=== PATIENT | female | born 1995 | race Caucasian/White ===

== ENCOUNTER 2018-01-19 06:58 | Inpatient (IN) | payer OTHER, MEDICAID ==
[~2018-01-19] VITALS: Ht 160 cm; Wt 91.4 kg
[2018-01-20] VITALS (60 sets, daily range): BP systolic 100–141; BP diastolic 51–83; PULSE 64–136; TEMP 97.5–98.5
[2018-01-20] MEDS ORDERED: RT ALBUTER2.5 MG/0.5 IH (07:28)
[2018-01-20] MEDS ORDERED: PRENATAL (07:29)
[2018-01-20] MEDS ORDERED: CLARISPRAY9.9 ML NS (07:30)
[2018-01-20] MEDS ORDERED: PERCOCET 325 MG1 TA2 PO (08:33)
[2018-01-20] MEDS ORDERED: MOTRIN 800800 MG/TAB PO (08:33)
[2018-01-20 08:35] LABS: BASO % 0.3 % (0.0-2.0); EOS # 0.4 (0.0-0.7); EOS % 3.4 % (0-4.0); GRAN # 7.7 (1.4-6.5); GRAN % 73.4 % (42.2-75.2); LYMPH # 1.4 (1.2-3.4); LYMPH % 13.6 % (20.0-51.0); MEAN CELL VOLUME 83 fl (80.0-100.0); MEAN CORPUSCULAR HGB CONC 33 g/dl (33.0-37.0); MEAN PLATELET VOLUME 11.3 fl (7.4-10.4); MONO # 0.8 (0.1-0.6); PLATELET COUNT 285 K/mm3 (130-400); RED BLOOD COUNT 3.97 M/mm3 (4.10-5.30); REDCELL DISTRIBUTION WIDTH-CV 13.8 % (11.5-14.5)
[2018-01-20 08:42] LABS: HEMOGLOBIN 10.8 g/dl (12.5-16.0); MEAN CORPUSCULAR HEMOGLOBIN 27 pg (27.0-31.0)
[2018-01-21 03:00] VITALS: BP 107/71; PULSE 113; TEMP 97.9
[2018-01-21 07:50] VITALS: BP 119/58; PULSE 79; TEMP 97.9
[2018-01-21 16:16] VITALS: BP 100/69; PULSE 90; TEMP 98.2
[2018-01-21 19:00] VITALS: BP 118/66; PULSE 78; TEMP 98.6
[2018-01-22 07:00] VITALS: BP 121/69; PULSE 81; TEMP 97.6
== END 2018-01-22 11:25 | disposition home or self-care (01) | DRG 775 ==
LOC: LDR 01-20 06:55 → OB 01-20 06:55 → LDR 01-20 06:57 → OB 01-21 00:30
PROVIDERS: Obstetrics & Gynecology
PROC: 10D07Z6 Extraction of Products of Conception, Vacuum, Via Natural or Artificial Opening (ICD-10-PCS; principal; 2018-01-20)
PROC: 0W8NXZZ Division of Female Perineum, External Approach (ICD-10-PCS; 2018-01-20)
PROC: 3E033VJ Introduction of Other Hormone into Peripheral Vein, Percutaneous Approach (ICD-10-PCS; 2018-01-20)
PROC: 10907ZC Drainage of Amniotic Fluid, Therapeutic from Products of Conception, Via Natural or Artificial Opening (ICD-10-PCS; 2018-01-20)
DX: O76 Abnormality in fetal heart rate and rhythm complicating labor and delivery (principal); Z3A.39 39 weeks gestation of pregnancy; Z37.0 Single live birth; O75.89 Other specified complications of labor and delivery; J45.909 Unspecified asthma, uncomplicated
CPT/HCPCS: J0690; J2210; J2590; J7120

== ENCOUNTER → 2021-10-17 | Outpatient (CLI) | payer OTHER ==
[~2021-10-17] MED LIST: CLARISPRAY9.9 ML NS; MOTRIN 800800 MG/TAB PO; PERCOCET 325 MG1 TA2 PO; PRENATAL; RT ALBUTER2.5 MG/0.5 IH
== END ==
LOC: MHCPAIN 13:31
DX: M54.2 Cervicalgia (principal); M79.10 Myalgia, unspecified site; M79.602 Pain in left arm; J38.3 Other diseases of vocal cords

== ENCOUNTER → 2021-10-17 | Outpatient (CLI) | payer MEDICAID | LOC: COL.RAD 15:01 | DX: M54.2 Cervicalgia (principal) ==

== ENCOUNTER → 2021-10-31 | Outpatient (CLI) | payer MEDICAID | LOC: MHCPAIN 10:59 | DX: M79.18 Myalgia, other site (principal); M54.2 Cervicalgia; R07.89 Other chest pain | CPT/HCPCS: J1100 ==

== ENCOUNTER → 2021-11-28 | Outpatient (CLI) | payer MEDICAID | LOC: MHCPAIN 13:20 | DX: J38.3 Other diseases of vocal cords (principal); M79.18 Myalgia, other site; M54.2 Cervicalgia | CPT/HCPCS: G0463 ==